=== PATIENT | female | born 1980 | race Two or more races ===

== ENCOUNTER 2019-04-01 14:25 | Outpatient (CLI) | payer OTHER | END 2019-04-01 14:31 | disposition home or self-care (01) | LOC: MAMO-SONO 14:25 | DX: N60.12 Diffuse cystic mastopathy of left breast (principal); N60.11 Diffuse cystic mastopathy of right breast; N64.4 Mastodynia; Z12.31 Encounter for screening mammogram for malignant neoplasm of breast ==